=== PATIENT | male | born 1985 | race Caucasian/White ===

== ENCOUNTER → 2023-01-01 | Outpatient (CLI) | payer OTHER | END | disposition home or self-care (01) | LOC: LABWHC1 09:58 | PROVIDERS: ATTEND Nurse Practitioner Family | DX: E66.9 Obesity, unspecified (principal); R53.83 Other fatigue | CPT/HCPCS: 36415; 84402; 84403 ==

== ENCOUNTER → 2023-01-18 | Outpatient (CLI) | payer OTHER ==
--- NOTE | 2023-01-18 16:35 | P.SLEEP ---
History of Present Illness H&P Date: 01/18/23 This is a 37-year-old male patient with known history of obstructive sleep apnea. His last evaluation with me in the office was on 01/20/2016. I diagnosis patient having severe obstructive sleep apnea and his original diagnosis was made back in 2015. The patient had an AHI of 65 and following luis t the patient was given a CPAP unit which is set at a pressure of 14 cm of water. He is coming in for evaluation. I noted that the patient has been utilizing his CPAP every night. He has gained weight over the years and overall he has gained around 15 pounds since his diagnosis. Nevertheless, his treatment has remained successful. The patient is using airfit 20 fullface mask. He is looking for alternatives. Based on the compliance data that is on the machine, the patient had utilizing the machine on average of 4.8 hours per night and his compliancy for more than 4 hours is above 70%. His leak is in order of 36 L/m and his AHI down to 1. No snoring while on treatment. No excessive tiredness or sleepiness during the day specially on those days when he uses the machine. He goes to bed at around 11 PM and wakes up 5 AM in the morning. No oral dryness. No morning headaches. No shortness of breath. No other cardiac events or complications over the past 5 years at least. He seems to be committed to long-term CPAP therapy. Review of Systems Constitutional: Reports daytime sleepiness, Reports fatigue, Reports weight gain Eyes: denies as per HPI, denies blurred vision, denies bulging eye, denies decreased vision, denies diplopia, denies discharge, denies dry eye, denies irritation, denies itching, denies pain, denies photophobia, denies loss of peripheral vision, denies loss of vision, denies tunnel vision/blind spots Ears: deny: decreased hearing, ear discharge, earache, tinnitus Ears, nose, mouth and throat: Reports as per HPI Cardiovascular: Reports as per HPI Respiratory: Reports sleep apnea, Reports snoring Gastrointestinal: Reports as per HPI Genitourinary: Reports as per HPI Musculoskeletal: Reports as per HPI Musculoskeletal: absent: ankle pain, ankle stiffness, ankle swelling Integumentary: Reports as per HPI Neurological: Reports as per HPI Psychiatric: Reports as per HPI Endocrine: Reports as per HPI Hematologic/Lymphatic: Reports as per HPI Allergic/Immunologic: Reports as per HPI Past Medical History Past Medical History: Sleep Apnea/CPAP/BIPAP Additional Past Medical History / Comment(s): mrsa History of Any Multi-Drug Resistant Organisms: MRSA Date of last positivie culture/infection: 2010 MDRO Source:: ear Past Surgical History: No Surgical Hx Reported Past Psychological History: No Psychological Hx Reported Past Alcohol Use History: Rare Past Drug Use History: None Reported Medications and Allergies Home Medications and Allergies Comment(s): None Home Medications Medication Instructions Recorded Confirmed Type Mupirocin 2% Oint [Bactroban 2% 1 applic TOPICAL BID #1 bottle 07/06/16 Rx Oint] Sulfamethox-Tmp 800-160Mg [Bactrim 2 each PO Q12HR #56 tab 07/06/16 Rx Ds] Allergies Allergy/AdvReac Type Severity Reaction Status Date / Time cephalexin [From Keflex] Allergy Anaphylaxis Verified 07/06/16 16:27 Physical Exam BP is 149/84, pulse is 93, respirations 16, temperature 97.3 and a pulse ox 95% on room air oxygen. Body mass index is 37.6, the size of the neck is 17.5 inches and the weight is 251 pounds. The patient appeared well nourished and normally developed. Vital signs as documented. Head exam is unremarkable. No scleral icterus or corneal arcus noted. Neck is without jugular venous distension, thyromegaly, or carotid bruits. Carotid upstrokes are brisk bilaterally, the patient is a Mallampati class IV with significant crowding of posterior pharynx and tonsillar enlargements bilaterally. Lungs are clear to auscultation and percussion. Cardiac exam reveals the PMI to be normally sized and situated. Rhythm is regular. First and second heart sounds normal. No murmurs, rubs or gallops. Abdominal exam reveals normal bowel sounds, no masses, no organomegaly and no aortic enlargement. Extremities are nonedematous and both femoral and pedal pulses are normal.Examination of the skin revealed no evidence of significant rashes, suspicious appearing nevi or other concerning lesions.Neurologically, the patient is awake and alert and the patient does not have any focal neurological deficit. Cranial nerves are essentially intact. Assessment and Plan Plan: Severe obstructive sleep apnea with an AHI of 65. The patient has demonstrated adequate therapy with CPAP over the years at a pressure of 14 cm of water Obesity with interval weight gain and current body mass index is up to 37.6 Chronic hypersomnia currently on CPAP therapy Bilateral tonsillar enlargement Osteoarthritis Plan Continue using the CPAP machine at the same level of pressure. No need for adjustment of the patient's treatment has been essentially successful for now. I'm recommending an alternative mask which will be the Airfit F30 I mask as an a lternative for the Airfit F20 Maintain regular sleep schedule. Maintaining good sleep hygiene measures. No other cardiovascular complications. Treatment has remained successful and the patient will see me back in one year's time and follow-up. No need to update his machine. His treatment is successful for now. Sleep Note - Sleep Note Sleep Note: Temperature: Pulse Rate: Respiratory Rate: Blood Pressure: SpO2: Height: Weight: BMI: Neck Circumference:
== END ==
LOC: SLEEP 15:24
PROVIDERS: ATTEND Internal Medicine Critical Care Medicine
DX: G47.33 Obstructive sleep apnea (adult) (pediatric) (principal); Z99.89 Dependence on other enabling machines and devices; E66.9 Obesity, unspecified; Z68.37 Body mass index [BMI] 37.0-37.9, adult; M19.90 Unspecified osteoarthritis, unspecified site; J35.01 Chronic tonsillitis; Z88.1 Allergy status to other antibiotic agents
CPT/HCPCS: 99211